=== PATIENT | male | born 1970 | race Caucasian/White ===

== ENCOUNTER → 2016-12-24 | Outpatient (CLI) | payer BC ==
--- NOTE | 2016-12-28 08:29 | CARDEX ---
CARDIOPULMONARY EXERCISE REPORT Mr. Busch performed a symptom limited stress test utilizing a step exercise protocol monitoring several cardiopulmonary parameters including expiratory gas exchange. He had mild to moderate reduction in aerobic capacity which appears to be due primarily to de-conditioning. He achieved roughly 60% of his predicted maximum VO2, but it was a sub-maximal study limited by dyspnea and leg fatigue. His ventilatory response was actually normal and he had adequate ventilatory reserve at 44%. His O2 saturations were 92% to 95% throughout the study with no significant de-saturation. He did, however, become dyspneic. His ventilation perfusion ratios were normal at rest, during exercise and during recovery. His pulmonary capacitance was also normal. His cardiovascular response was normal at a sub-maximal level. He only achieved 80% of his predicted maximum heart rate but again was exhausted and short of breath at that point. However, his breathing efficiency and end-tidal C02 response to exercise were normal and blood pressure response was also normal. He experienced no chest pain or light-headedness. IMPRESSION: In summary, Mr. Busch has a mild to moderate reduction in maximal aerobic capacity which appears to be due to de-conditioning. He had more than adequate ventilatory reserve and his cardiovascular response was normal at the level of exercise he performed. Weight loss and a conditioning program might be helpful and if symptoms persisted, a repeat study could be considered. Mary PARIKH M.D. lt 12/28/16
== END ==
LOC: HRSP 13:10
PROVIDERS: ATTEND Internal Medicine
DX: R06.00 Dyspnea, unspecified (principal)
CPT/HCPCS: 94621